=== PATIENT | female | born 1960 | race Two or more races ===

== ENCOUNTER 2024-11-20 15:02 | Emergency (ER) | payer MEDICARE, OTHER, SELFPAY ==
[2024-11-20 15:07] VITALS: BP 96/59
[2024-11-20 15:10] VITALS: BMI 26.6
--- NOTE | 2024-11-20 15:18 | ED.GENMED ---
History of Present Illness
General
Chief Complaint: Fainting/Passed Out
Source: patient
Exam Limitations: none
Time Seen by Provider: 11/20/24 15:16
Nursing documentation reviewed up to this point in time: agreed with
History of Present Illness
History of Present Illness:
Patient states she was out to lunch with friends. Friends state she suddenly slumped over onto table. Brief <1min LOC. No bowel or bladder incontinence. Denies fever/chills, recent illlness. No n/v/d. No cp/pressure, SOB. Brought to ED Via
EMS. Currently asymptomatic
Past History
Past History
ED Past Medical History: Asthma
Review of Systems
Review of Systems
Allergies reviewed?: Yes
All Other Systems: ROS reviewed and negative except as documented in HPI and ROS
Constitutional: Reports no symptoms
EENT: Reports no symptoms
Respiratory: Reports no symptoms
Cardiac: Reports syncope
ABD/GI: Reports no symptoms
: Reports no symptoms
Musculoskeletal: Reports no symptoms
Skin: Reports no symptoms
Neurological: Reports no symptoms
Psychiatric: Reports no symptoms
Phy Exam
General Physical Exam
General Presentation: well appearing and no apparent distress
General age: appears stated age
General Skin: warm and dry
General Habitus: normal
General Mental: alert
Cardiovascular Exam
Cardiovascular Exam: regular rate/rhythm and no edema
Pulmonary Exam
Pulmonary Exam: lungs clear and no respiratory distress
Gastrointestinal Exam
Gastrointestinal Exam: non tender and soft
Neurological Exam
Neurological Exam: alert, oriented x3, CN II-XII intact, no motor deficits, no sensory deficits and speech normal
Musculoskeletal Exam
Musculoskeletal Exam: full ROM and neuro vasc intact
Skin Exam
Skin Exam: normal color, warm/dry and no rash
Psychiatric Exam
Psychiatric Exam: normal mood/affect
Course
Orders/Labs/Results
Orders:
Orders
11/20/24 15:36
Orthostatic VS- Treatment ONCE
11/20/24 15:37
Electrocardiogram (*1) Urgent
Reason for Study: Syncope
EKG- Treatment ONCE
0.9% Sodium Chloride 1000 ml [Nss] 1,000 ml IV BOLUS
11/20/24 15:57
Complete Blood Count/With Diff Urgent
Comprehensive Metabolic Panel Urgent
11/20/24 16:47
Urinalysis Reflex To Culture Urgent
Date Specimen was Collected: 11/20/24
Time Specimen was Collected: 16:46
Urine Microscopic Reflex Cult Urgent
Urine Culture Urgent
ADDY Source: U
Specimen Description:
Date Specimen was Collected: 11/20/24
Time Specimen was Collected: 16:46
Abnormal Lab Results
11/20/24 11/20/24
15:57 16:47
MCHC 32.1 L g/dL
(33.0-37.0)
MPV 10.5 H fL
(7.4-10.4)
Absolute Monos (auto) 0.8 H 10^3/uL
(0.1-0.6)
Glucose 119 H mg/dl
(70-99)
Urine Bacteria (Reflex) Moderate A
(Negative)
Urine Albumin (Reflex) 1+ A
(Neg - Trace)
11/20/24 15:57
11/20/24 15:57
Vital Signs
Initial and Last Documented VS:
Initial Vital Signs
BP Pulse Ox
96/59 91
11/20/24 15:07 11/20/24 15:07
Last Documented Vital Signs
Temp Resp BP Pulse Ox
97.7 F 18 102/54 98
11/20/24 15:15 11/20/24 15:15 11/20/24 17:00 11/20/24 17:30
*Radiology
Radiology exam reviewed: radiology read reviewed
*Pulse Oximetry
SaO2: 91
Patient hypoxic: no
*EKG
Rate: normal
Rhythm: sinus
ED Attending Note
-
Portions of this chart may have been created with voice recognition software.� Occasional wrong word or��sound alike� substitutions may have occurred due to the inherent limitations of voice recognition software.
Discharge Plan
Departure
Patient Disposition: Home (Routine Discharge)
Date of Disposition: 11/20/24
Time of Disposition: 17:39
Patient with high blood pressure during this ER visit?: No
Condition: Good
Covid-19: Not Applicable
Discharge Problem:
Syncope
Instructions: Syncope (Fainting) (DC)
Referrals:
NONE,* [Family Provider, Internal Medicine]
Activity Restrictions/Additional Instructions:
Follow up with your family doctor. Return to the emergency department immediately for any changes in/worsening of your symptoms
Interventions
Interventions:
*Risk Screen - Suicide Last Done: 11/20/24 15:10
*General Assessment Last Done: 11/20/24 15:12
*Neglect/Abuse Screening Last Done: 11/20/24 15:10
*ED- Fall Risk Assessment Last Done: 11/20/24 15:10
*ED COVID-19 Vaccine History Last Done: 11/20/24 15:10
*ED Influenza Vaccine History Last Done: 11/20/24 15:10
*Nursing Disposition Last Done: 11/20/24 17:50
ED- Cardiac Assessment Last Done: 11/20/24 15:17
ED- Neurological Assessment Last Done: 11/20/24 15:17
Discharge Date and Time
Discharge Date/Time: 11/20/24 17:55
Print Language: [email or web address]
[2024-11-20 16:00] VITALS: BP 101/55; BP 97/49; BP 98/57; PULSE 100; PULSE 67; PULSE 74
[2024-11-20 16:15] LABS: Hematocrit 37.4 % (37.0-47.0); Hemoglobin 12.0 g/dL (12.0-16.0); Mean Corp Hgb Conc. 32.1 g/dL (33.0-37.0); Mean Corpuscular Volume 86.4 fL (81.0-99.0); Nucleated Red Blood Cells % 0 %; Platelet Count 267 10^3/uL (130-400); Red Cell Dist. Width 12.6 % (11.5-14.5)
[2024-11-20 16:36] LABS: ALT (SGPT) 29 U/L (0-35); AST (SGOT) 31 U/L (14-36); Albumin 4.7 g/dl (3.5-5.0); Alkaline Phosphatase 73 U/L (38-126); Blood Urea Nitrogen 17 mg/dl (7-17); Calcium 9.4 mg/dl (8.4-10.2); Carbon Dioxide 25 mmol/L (22-30); Chloride 104 mmol/L (98-107); Estimated Creatinine Clearance 85 ml/min; Glucose 119 mg/dl (70-99); Potassium 4.1 mmol/L (3.5-5.1); Sodium 138 mmol/L (135-145); Total Protein 7.3 g/dl (6.3-8.2); eGFR > 60.00
[2024-11-20] MEDS: NSS 1000 IV (16:45)
[2024-11-20 16:46] VITALS: BP 92/55
[2024-11-20 17:00] VITALS: BP 102/54
[2024-11-20 17:01] LABS: Urine Character Slightly Cloudy (Clear)
[2024-11-20 18:03] LABS: Urine Red Blood Cell 0-2 /HPF (0-2); Urine Urothelial Cell 0-2 /LPF (FEW)
== END 2024-11-20 17:55 | disposition home or self-care (01) ==
LOC: EMR 15:02
PROVIDERS: Nurse Practitioner; EMERGENCY PHYSICIAN Emergency Medicine
DX: R55 Syncope and collapse (principal); J45.909 Unspecified asthma, uncomplicated
CPT/HCPCS: 99283; 80053; 81003; 81015; 85025; 87077; 87086; 93005